=== PATIENT | male | born 1990 | race Caucasian/White ===

== ENCOUNTER 2025-01-25 09:07 | Inpatient (IN) | payer MEDICAID, SELFPAY ==
[2025-01-25 09:16] VITALS: BP 142/100; PULSE 103; RESP 18; TEMP 36.6; O2SAT 95
[2025-01-25 09:21] VITALS: BP 142/100; PULSE 103; RESP 18; TEMP 36.6; O2SAT 95
--- NOTE | 2025-01-25 09:23 | W.ED.GENAD ---
Discharge Plan Discharge Details Chief Complaint: Cellulitis Primary Care Provider: Coni Johnson ED Provider: Yamilka Washburn Home Meds and New Rx's Prescriptions: No Action divalproex [Depakote] 500 mg tablet,delayed release (DR/EC) 500 mg PO DAILY Rx Instructions: Take for 90 days clindamycin HCl 300 mg capsule 300 mg PO TID Patient Comments: Take for 10 days- started 01/25/25 methadone 10 mg/mL concentrate 100 mg PO DAILY albuterol 90 mcg/actuation aerosol 90 mcg inhalation QID PRN amitriptyline 50 mg tablet 50 mg PO QHS Arnuity Ellipta 50 mcg/actuation blister with device 1 inh inhalation DAILY HPI General Date/Time Provider Initiated Documentation: 01/25/25 09:22. HPI Narrative: Tone is a 35 year old male who presents to the emergency department today for evaluation of right elbow cellulitis. He reports that this started 4 to 5 days ago after he popped a fluid-filled blister on his right forearm. He says that it has grown swollen and reddened despite treatment with IM antibiotics and doxycycline. He says that Bactrim usually works for these types of infections for him, but he was not given that this time around. Denies associated fever/chills, general malaise, distal numbness. He does have decreased range of motion to right elbow due to significant swelling to forearm and distal elbow.. 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 Denies history of IVDU, immunocompromise, or other chronic conditions. He is on methadone daily. Physical exam remarkable for significant swelling (pitting edema), redness, and warmth to right forearm. Patient is able to bend elbow to 90 degrees, but is not able to fully extend elbow due to swelling and discomfort. Distal pulses intact, 5 out of 5 muscle strength to hand and arm. No pain with palpation of wrist or shoulder. Mild tachycardia noted, heart rate 103. Easy work of breathing, lung sounds clear bilaterally. D/dx includes but is not limited to: Abscess, cellulitis, lower suspicion for septic joint I independently interpreted the following tests: CBC, BMP, sed rate all reassuring. CRP slightly elevated at 2.48. CT upper extremity performed, soft tissue edema noted, no evidence of abscess or fluid collection. While in the emergency department, Tone received IV vancomycin. Presented case to hospitalist Dr. Jean Baptiste, patient to be admitted for treatment resistant cellulitis. Patient is agreeable with plan of care. Related Data Home Medications ?Medication ?Instructions ?Recorded ?Confirmed albuterol 90 mcg/actuation aerosol 90 mcg inhalation QID PRN 01/25/25 01/25/25 inhaler amitriptyline 50 mg tablet 50 mg PO QHS 01/25/25 01/25/25 clindamycin HCl 300 mg capsule 300 mg PO TID 01/25/25 01/25/25 divalproex 500 mg tablet,delayed 500 mg PO DAILY 01/25/25 01/25/25 release (Depakote) fluticasone furoate 50 1 inh inhalation DAILY 01/25/25 01/25/25 mcg/actuation blister powder for inhalation (Arnuity Ellipta) methadone 10 mg/mL oral concentrate 100 mg PO DAILY 01/25/25 01/25/25 Allergies Allergy/AdvReac Type Severity Reaction Status Date / Time No Known Allergies Allergy Unverified 01/25/25 09:25 General Stated Complaint: Cellulitis PAULETTE: 3 Review of Systems Narrative: See HPI Exam Const General: cooperative, healthy appearing, comfortable, no acute distress and well developed Nutritional Appearance: average body habitus and well nourished Orientation: alert and oriented x3 Resp Effort & Inspection: normal respiratory effort and able to speak in complete sentences Auscultation: clear to auscultation bilaterally Cardio Rate: tachycardic Rhythm: regular rhythm Skin Lesions: lesion noted (Lesion to right forearm with surrounding cellulitis, approx 15 cm x 8 cm) Neuro Motor: muscle tone normal throughout Sensory Exam: no sensory deficits noted Extrem Right upper extremity: elbow/forearm (Decreased extension due to swelling/discomfort) Details: swelling Location: of the proximal forearm Course Vital Signs Vital signs: Vital Signs Temperature 36.6 C 01/25/25 09:16 Pulse 103 H 01/25/25 09:16 Respiratory Rate 18 01/25/25 09:16 Blood Pressure 142/100 H 01/25/25 09:16 Pulse Oximetry 95 01/25/25 09:16 Temperature 36.6 C 01/25/25 09:21 Temperature Source Oral 01/25/25 09:21 Pulse 103 H 01/25/25 09:21 Respiratory Rate 18 01/25/25 09:21 Blood Pressure 142/100 H 01/25/25 09:21 Blood Pressure Position Sitting 01/25/25 09:21 Pulse Oximetry 95 01/25/25 09:21 Oxygen Delivery Method Room Air 01/25/25 09:21 Oxygen Flow Rate 0 01/25/25 09:21 Pain Level 7 01/25/25 09:21 Medical Decision Making Imaging Data Radiologic Study: Radiologist's impression: Accession No. : [id number] Creator : VICTOR MANUEL SAMPSON Dictator : VICTOR MANUEL SAMPSON Director Oracle : Social Services Aide : VICTOR MANUEL SAMPSON Approver2 : Report Date : 01/25/2025 12:50:09 Exam(s) CT UPPER EXTREMITY RT W EXAM: CT UPPER EXTREMITY RT W CLINICAL HISTORY: abscess to R forearm TECHNIQUE: Imaging Protocol: Axial computed tomography images with coronal and sagittal reformatted images were created and reviewed. CONTRAST MATERIAL: Intravenous: Omnipaque 350 Contrast volume:1 Ruelas contrast route:IV - COMPARISON: No exams were available for comparison FINDINGS: Bones: There is no evidence of fracture or dislocation. Bony alignment is satisfactory. No lytic or sclerotic lesions are identified. Soft Tissues: Diffuse soft tissue edema from slightly above the elbow through the distal forearm, greater posteriorly. No discrete abscess or fluid collection. Vasculature appears patent. IMPRESSION: Soft tissue edema posteriorly. No evidence of abscess. RADIATION DOSE DELIVERED: 377.18mGy.cm Total DLP DATA REPOSITORY: All CT scans at this facility are submitted to the National Radiology Data Registry (NRDR) Dose Index Registry (DIR) with the [employer] (ACR). RADIATION OPTIMIZATION: All CT scans at this facility use at least one of these dose optimization techniques: automated exposure control; mA and/or kV adjustment per patient size (includes targeted exams where dose is matched to clinical indication); or iterative reconstruction. Quality:SDOH Health Related Social Needs: No Data to Display [facility] Social History Smoking/Tobacco Use Status: Current every day Smoking risk assessment performed?: Yes Drug use: Daily Do you feel safe in your relationship?: Yes
--- NOTE | 2025-01-25 09:45 | DI.CT_ITS ---
Exam(s) CT UPPER EXTREMITY RT W EXAM: CT UPPER EXTREMITY RT W CLINICAL HISTORY: abscess to R forearm TECHNIQUE: Imaging Protocol: Axial computed tomography images with coronal and sagittal reformatted images were created and reviewed. CONTRAST MATERIAL: Intravenous: Omnipaque 350 Contrast volume:1 Ruelas contrast route:IV - COMPARISON: No exams were available for comparison FINDINGS: Bones: There is no evidence of fracture or dislocation. Bony alignment is satisfactory. No lytic or sclerotic lesions are identified. Soft Tissues: Diffuse soft tissue edema from slightly above the elbow through the distal forearm, gr eater posteriorly. No discrete abscess or fluid collection. Vasculature appears patent. IMPRESSION: Soft tissue edema posteriorly. No evidence of abscess. RADIATION DOSE DELIVERED: 377.18mGy.cm Total DLP DATA REPOSITORY: All CT scans at this facility are submitted to the National Radiology Data Registry (NRDR) Dose Index Registry (DIR) with the [employer] (ACR). RADIATION OPTIMIZATION: All CT scans at this facility use at least one of these dose optimization te chniques: automated exposure control; mA and/or kV adjustment per patient size (includes targeted exa ms where dose is matched to clinical indication); or iterative reconstruction.
[2025-01-25 10:42] LABS: Abs Immature Grans 0.05 10^3/uL (0.0-0.06); Absolute Basophil Count 0.02 10^3/uL (0.0-0.2); Absolute Eosinophil Count 0.24 10^3/uL (0.0-0.7); Absolute Lymphocyte Count 1.21 10^3/uL (1.2-3.4); Absolute Neutrophil Count 3.68 10^3/uL (1.2-6.7); Basophils % 0.4 %; Eosinophils % 4.2 %; HCT 39.8 % (40.0-50.0); HGB 13.6 g/dL (13.5-17.5); Immature Grans % 0.9 %; Lymphocytes % 21.2 %; MCHC 34.2 % (32.0-36.0); MCV 88 fL (80-95); MPV 8.9 fL (8.0-11.0); Monocytes % 8.8 %; Neutrophils % 64.5 %; Platelet Count 224 10^3/uL (130-400); RBC 4.54 10^6/uL (4.36-5.78); RDW 12.2 % (11.8-14.1); RDW-SD 39.2 fL
[2025-01-25 10:43] LABS: ESR 7 mm/hr (0-15)
[2025-01-25 10:54] LABS: C-Reactive Protein 2.48 mg/dL (<or=0.5)
[2025-01-25] MEDS: Normal Saline - Diluent 50 ML VIAL IJ (11:58)
[2025-01-25] MEDS: Omnipaque 350 MG/ML 100 ML BTL IJ (11:59)
[2025-01-25 12:24] LABS: Anion Gap 8.5 mmol/L (3-11); BUN 14 mg/dL (7-18); CO2 29.5 mmol/L (21.0-32.0); CREATININE 0.9 mg/dL (0.70-1.30); Calcium 8.9 mg/dL (8.5-10.1); Chloride 103 mmol/L (98-107); Estimated GFR 115.65 (mL/min/1.73m2); Glucose 91 mg/dL (74-106); Potassium 4.2 mmol/L (3.5-5.1); Sodium 141 mmol/L (136-145)
[2025-01-25 12:46] LABS: Lab Add On Test DONE
[2025-01-25] MEDS: VANCOMYCIN 2,000 MG in Normal Saline 500 ML 333.3333 MG IVPB (13:42)
[2025-01-25 16:48] VITALS: BP 129/78; PULSE 71; TEMP 36.3; O2SAT 94
[2025-01-25 20:32] VITALS: BP 134/75; PULSE 70; RESP 19; TEMP 36.8; O2SAT 98
--- NOTE | 2025-01-25 20:32 | W.PCEDHO ---
Registration Status: Primary Language: Preferred Language: ED Information & Data Chief Complaint Cellulitis 01/25/25 09:40 Triage Note Hx of these infections- 01/25/25 09:16 usually uses a different antibiotic but was started on doxy which does not typically work for him- infection present for 4-5 days, denies fevers Most Recent Vital Signs Temperature 36.3 C L 01/25/25 16:48 Temperature Source Oral 01/25/25 16:48 Pulse 71 01/25/25 16:48 Respiratory Rate 18 01/25/25 09:21 Blood Pressure 129/78 01/25/25 16:48 Blood Pressure Position Sitting 01/25/25 09:21 Pulse Oximetry 94 01/25/25 16:48 Oxygen Delivery Method Room Air 01/25/25 16:48 Oxygen Flow Rate 0 01/25/25 16:48 Pain Level 4 01/25/25 16:48 Allergies No Known Allergies Allergy (Unverified 01/25/25 09:25) Precautions Isolation Standard precaution 01/25/25 09:22 Active Medications Generic Name Dose Route Start Last Admin Trade Name Capo PRN Reason Stop Dose Admin Iohexol 100 ml 01/25/25 12:00 01/25/25 11:59 Omnipaque 350 Mg/Ml 100 Ml Btl IJ 02/24/25 23:59 100 ml DIRECTED CONCEPCIÓN Administration Sodium Chloride 50 ml 01/25/25 12:00 01/25/25 11:58 Normal Saline - Diluent 50 Ml Vial IJ 50 ml .FOR DI USE CONCEPCIÓN Administration IV IV Catheter Type [Left Saline Lock Antecubital] IV Catheter Gauge [Left 18 Antecubital] Diagnostics 01/25/25 01/25/25 Range/Units 12:20 10:33 WBC 5.70 (4.4-10.8) 10^3/uL RBC 4.54 (4.36-5.78) 10^6/uL Hgb 13.6 (13.5-17.5) g/dL Hct 39.8 L (40.0-50.0) % MCV 88 (80-95) fL MCH 30.0 (27.0-33.0) pg MCHC 34.2 (32.0-36.0) % RDW 12.2 (11.8-14.1) % Plt Count 224 (130-400) 10^3/uL MPV 8.9 (8.0-11.0) fL Immature Gran % 0.9 % Neutrophils % 64.5 % Lymphocytes % 21.2 % Monocytes % 8.8 % Eosinophils % 4.2 % Basophils % 0.4 % Nucleated RBC % 0.0 (0.0-0.3) % Absolute Neutrophils 3.68 (1.2-6.7) 10^3/uL Absolute Lymphocytes 1.21 (1.2-3.4) 10^3/uL Absolute Monocytes 0.50 (0.1-0.8) 10^3/uL Absolute Eosinophils 0.24 (0.0-0.7) 10^3/uL Absolute Basophils 0.02 (0.0-0.2) 10^3/uL ESR 7 (0-15) mm/hr Sodium 141 (136-145) mmol/L Potassium 4.2 (3.5-5.1) mmol/L Chloride 103 (98-107) mmol/L Carbon Dioxide 29.5 (21.0-32.0) mmol/L Anion Gap 8.5 (3-11) mmol/L BUN 14 (7-18) mg/dL Creatinine 0.9 (0.70-1.30) mg/dL Est GFR (CKD-EPI 2020) 115.65 (mL/min/1.73m2) Glucose 91 (74-106) mg/dL Calcium 8.9 (8.5-10.1) mg/dL C-Reactive Protein 2.48 H (<or=0.5) mg/dL Add-On Test Request DONE 01/25/25 11:08 Blood Culture - Pending Blood 01/25/25 10:33 Blood Culture - Pending Blood Intake and Output - 24 Hour Total 01/25/25 09:07 thru 01/25/25 16:43 Intake Total 510 Balance 510 Weight 104.326 kg Intake: IV 510 Falls Risk Assessment History of Falls No History 01/25/25 09:27 Contributing Factors No Factors 01/25/25 09:27 Ambulatory Aids Independent 01/25/25 09:27 Tubes/Lines None 01/25/25 09:27 Gait Evaluation No gait disturbance 01/25/25 09:27 Cognition No cognitive impairment 01/25/25 09:27 Fall Total Score 0 01/25/25 09:27 Level of Risk Standard/Low Risk 01/25/25 09:27 Problems Cellulitis (Acute) v v v v v v v v v Sending and/or Receiving Nurses: Please use comment section below to note any information pertinent to the patient hand-off not included above. Information / Comments: no questions. Report received from: Karen FERGUSON
[2025-01-25 20:42] VITALS: BP 148/90; PULSE 75; RESP 20; TEMP 36.7; O2SAT 98
--- NOTE | 2025-01-25 21:37 | HPE_ITS ---
Date of service: 01/25/25 Time of Service: 20:00 Assessment and Plan Assessment and plan (1) Cellulitis: Status: Acute Assessment and plan: * Right forearm cellulitis, likely due to MRSA, given the patient's history of frequent MRSA abscesses, failed initial treatment with doxycycline, and characteristic presentation (swelling, redness, warmth). * The patient denies systemic symptoms like fever, chills, or malaise, and imaging showed no evidence of abscess or fluid collection, which suggests a localized infection. * No evidence of septic arthritis or deep tissue infection (no joint involvement, CT negative for abscess). Plan: 1. Antibiotics: * Continue IV Vancomycin: * Initiate or continue IV vancomycin for MRSA coverage. * Dosage: 15 mg/kg IV every 12 hours (adjust as needed based on renal function). * Reassess daily for clinical improvement. If no improvement after 48-72 hours, consider broadening coverage or changing to an alternative antibiotic. * Assess for Oral Step-Down: * Once clinically stable, consider switching to oral Bactrim (for MRSA coverage) or Clindamycin (if vancomycin tolerance or resistance is a concern) for outpatient therapy. * Transition when the patient has improved, and fever or signs of systemic infection have resolved. 2. Pain Management: * NSAIDs (e.g., ibuprofen 400-600 mg every 6-8 hours) for pain relief, as tolerated. * Consider acetaminophen for mild pain and discomfort. 3. Wound Care: * Elevation: Encourage the patient to elevate the affected arm to reduce swelling. * Wound care instructions: Keep the area clean, dry, and covered with sterile dressing to avoid further contamination or trauma. 4. Monitoring: * Vital Signs: Monitor temperature, heart rate, and respiratory status. * Labs: Continue monitoring for any signs of worsening infection or systemic involvement (e.g., repeat CBC, CRP). * Monitor renal function with vancomycin therapy, as needed. 5. Consultation: * If there is no improvement within 48-72 hours of treatment, consider Infectious Disease consultation for possible antibiotic adjustment or other diagnostic evaluations. * If a deeper abscess develops or further surgical intervention is needed, consult Surgery for drainage. 6. Discharge Criteria: * If the patient improves, he may be discharged with a prescription for oral antibiotics (Bactrim or clindamycin) and follow-up care. * Follow-up: Schedule a follow-up appointment in 48-72 hours to reassess progress or sooner if any signs of worsening occur. * Provide contact instructions if symptoms worsen (increased redness, fever, worsening pain, or swelling). 7. Patient Education: * Discuss MRSA infection prevention, including proper wound care and hygiene. * Advise on recognizing warning signs of worsening infection (e.g., fever, increased redness, or drainage) and when to seek urgent care. * Reinforce the importance of completing the full course of antibiotics, even if symptoms resolve. History of Present Illness History of Present Illness Chief Complaint: Pain to right lower arm Narrative: Tone Wall is a 35-year-old male who presents to the emergency department with a complaint of right elbow cellulitis. He reports that the condition began 4-5 days ago after he popped a fluid-filled blister on his right forearm. Since then, the area has become progressively swollen, red, and increasingly painful, despite having received intramuscular antibiotics and doxycycline. He notes that Bactrim is typically effective for these types of infections for him, but it was not prescribed this time. He denies fever, chills, general malaise, or distal numbness. However, he reports decreased range of motion in the right elbow due to swelling in the forearm and distal elbow region. The patient has a history of frequent abscesses, including MRSA infections for which he has undergone MRSA eradication previously. He has experienced multiple abscesses throughout his body. He denies any history of intravenous drug use, immunocompromise, or other chronic conditions. He is currently on methadone daily. Physical Exam: * Right Forearm: Significant swelling with pitting edema, redness, and warmth. * Right Elbow: The patient is able to bend the elbow to 90 degrees but is unable to fully extend it due to swelling and discomfort. * Distal Extremity: Distal pulses are intact, and muscle strength is 5/5 in both the hand and arm. * Other Joints: No pain with palpation of the wrist or shoulder. * Vitals: Mild tachycardia (heart rate 103). The patient has easy work of breathing, and lung sounds are clear bilaterally. Diagnostic Workup: * Laboratory Results: * CBC, BMP, and sed rate: All reassuring, with no significant signs of systemic infection. * CRP: Slightly elevated at 2.48, which is consistent with inflammation. * Imaging: * CT of the upper extremity: Demonstrated soft tissue edema, but no evidence of abscess or fluid collection, which makes an abscess less likely. Differential Diagnosis: * Abscess: Less likely, as there is no evidence of a fluid collection or abscess seen on the CT scan. * Cellulitis: Most likely diagnosis, given the patient?s presentation of swelling, redness, and warmth, and the patient?s history of MRSA infections. * Septic Joint: Less likely, as the patient has no joint pain and the swelling is more localized to the soft tissue, with no other signs suggesting a septic joint. Management: * The patient was started on IV vancomycin in the emergency department, which is appropriate for suspected MRSA cellulitis, given his history and current presentation. * The patient is admitted to the medical floor for futher administration of IV antibiotics. * Full code [facility] All Active Problems (Updated 01/25/25 @ 15:59 by Yamilka Jenkins) Cellulitis (Acute) Social History Smoking/Tobacco Use Status: Current every day Smoking risk assessment performed?: Yes Drug use: Daily Housing: other Do you feel safe in your relationship?: Yes Meds Allergies and Home Medications Allergies Allergy/AdvReac Type Severity Reaction Status Date / Time No Known Allergies Allergy Unverified 01/25/25 09:25 Home Medications ?Medication ?Instructions ?Recorded ?Confirmed ?Type albuterol 90 mcg/actuation aerosol 90 mcg inhalation QID PRN 01/25/25 01/25/25 History inhaler amitriptyline 50 mg tablet 50 mg PO QHS 01/25/25 01/25/25 History clindamycin HCl 300 mg capsule 300 mg PO TID 01/25/25 01/25/25 History divalproex 500 mg tablet,delayed 500 mg PO DAILY 01/25/25 01/25/25 History release (Depakote) fluticasone furoate 50 1 inh inhalation DAILY 01/25/25 01/25/25 History mcg/actuation blister powder for inhalation (Arnuity Ellipta) methadone 10 mg/mL oral concentrate 100 mg PO DAILY 01/25/25 01/25/25 History Exam Const General: cooperative, healthy appearing, comfortable, no acute distress and well developed Nutritional Appearance: average body habitus and well nourished Orientation: alert and oriented x3 Resp Effort & Inspection: normal respiratory effort and able to speak in complete sentences Auscultation: clear to auscultation bilaterally Cardio Rate: tachycardic Rhythm: regular rhythm Skin Lesions: lesion noted (Lesion to right forearm with surrounding cellulitis, approx 15 cm x 8 cm) Neuro Motor: muscle tone normal throughout Sensory Exam: no sensory deficits noted Extrem Right upper extremity: elbow/forearm (Decreased extension due to swelling/discomfort) Details: swelling Location: of the proximal forearm Results Labs 01/25/25 10:33 01/25/25 10:33 Labs: Laboratory Results - last 24 hr 01/25/25 01/25/25 10:33 12:20 WBC 5.70 RBC 4.54 Hgb 13.6 Hct 39.8 L MCV 88 MCH 30.0 MCHC 34.2 RDW 12.2 Plt Count 224 MPV 8.9 Immature Gran % 0.9 Neutrophils % 64.5 Lymphocytes % 21.2 Monocytes % 8.8 Eosinophils % 4.2 Basophils % 0.4 Nucleated RBC % 0.0 Absolute Neutrophils 3.68 Absolute Lymphocytes 1.21 Absolute Monocytes 0.50 Absolute Eosinophils 0.24 Absolute Basophils 0.02 ESR 7 Sodium 141 Potassium 4.2 Chloride 103 Carbon Dioxide 29.5 Anion Gap 8.5 BUN 14 Creatinine 0.9 Est GFR (CKD-EPI 2020) 115.65 Glucose 91 Calcium 8.9 C-Reactive Protein 2.48 H Add-On Test Request DONE Last Vital Signs Temp 36.7 C 01/25/25 20:42 Pulse 75 01/25/25 20:42 Resp 20 01/25/25 20:42 BP 148/90 H 01/25/25 20:42 Pulse Ox 98 01/25/25 20:42 Time Spent Time spent with Patient: 40-54 minutes Time was spent: preparing to see the patient(eg.review tests), obtaining and/or reviewing separately otained hiistory, ordering medications,tests, procedures, referring, communicating with other health child caregiver private home, indepentently interpreting results, counseling the patient and care coordination
[2025-01-25] MEDS: Water,Injection,Sterile 10 ML VIAL (22:30)
[2025-01-25] MEDS: VANCOMYCIN 750 MG in Normal Saline 250 ML 166.667 MG IVPB (23:00)
[2025-01-25] MEDS: Divalproex 500 MG TABEC PO (23:05)
[2025-01-26 03:04] VITALS: BP 134/84; PULSE 85; RESP 16; TEMP 36.9; O2SAT 93
[2025-01-26] MEDS: VANCOMYCIN 1,500 MG in Normal Saline 250 ML 166.667 MG IVPB ×2 (06:27→17:36)
[2025-01-26 06:47] LABS: Abs Immature Grans 0.06 10^3/uL (0.0-0.06); Absolute Basophil Count 0.02 10^3/uL (0.0-0.2); Absolute Eosinophil Count 0.24 10^3/uL (0.0-0.7); Absolute Lymphocyte Count 1.42 10^3/uL (1.2-3.4); Absolute Monocyte Count 0.47 10^3/uL (0.1-0.8); Absolute Neutrophil Count 3.02 10^3/uL (1.2-6.7); Basophils % 0.4 %; Eosinophils % 4.6 %; HCT 37.7 % (40.0-50.0); HGB 12.9 g/dL (13.5-17.5); Immature Grans % 1.1 %; Lymphocytes % 27.2 %; MCH 29.9 pg (27.0-33.0); MCHC 34.2 % (32.0-36.0); MCV 87 fL (80-95); MPV 9.1 fL (8.0-11.0); Neutrophils % 57.7 %; Platelet Count 223 10^3/uL (130-400); RBC 4.32 10^6/uL (4.36-5.78); RDW 12.2 % (11.8-14.1); RDW-SD 38.8 fL; WBC 5.23 10^3/uL (4.4-10.8)
[2025-01-26 06:53] LABS: Anion Gap 3.7 mmol/L (3-11); BUN 12 mg/dL (7-18); CO2 31.3 mmol/L (21.0-32.0); CREATININE 0.9 mg/dL (0.70-1.30); Chloride 104 mmol/L (98-107); Estimated GFR 115.65 (mL/min/1.73m2); Glucose 98 mg/dL (74-106); Magnesium 2.1 mg/dL (1.8-2.4); Potassium 3.9 mmol/L (3.5-5.1); Sodium 139 mmol/L (136-145)
[2025-01-26 07:19] VITALS: BP 124/79; PULSE 75; RESP 16; TEMP 36.4; O2SAT 93
[2025-01-26 07:25] LABS: C-Reactive Protein 1.94 mg/dL (<or=0.5); Vancomycin, Random 9.8 ug/mL
[2025-01-26] MEDS: Methadone Liquid 10 MG/ML 100 MG PO (08:04)
--- NOTE | 2025-01-26 09:22 | INITIAL_ITS ---
Date of service: 01/26/25 Time of Service: 09:22 Care Management Initial Assmt Initial Assessment Reason for Hospitalization: Cellulites of the right forearm Functional Status/Living Situation Patient Presentation: Tone has Cellulites of his right Forearm. He was started on IV ABX, and cultures are pending. He is an inmate at [facility] and will be accompanied by a chief privacy officer during his admission. Plan is for Tone to discharge back to the correctional facility when able to transition to PO antibiotics. Tone has a HX of MRSA; discharge to a Medical Correctional Facility should be considered if adjunct faculty for medical terminology IV ABX are needed. CM will follow. Town of Residence: [facility] Resides with: Other ( [facility]) Employment Status: Other (Incarcerated) Instrumental Activities of Daily Living (ADLs): Independent Medications Medication Management: No Issues/Barriers identified Physical Functioning/Mobility Assistive Device: None Advance Directives Advance Directives: Do you have an Advance Directive: N 09/10/14 18:43 AD On File at [facility]: N 09/10/14 18:43 Date Asked 01/25/25 01/25/25 09:16 AD Date Reviewed COLST On File at [facility] COLST Date Scanned Code Status Resuscitation Status Full Code Insurance Coverage/Financial Issues Insurance: Medicaid of [facility] Care Team Visit Care Team Role Provider Type Kristel Perez APRN MD [facility] STAFF PHYSICIAN Coni Johnson Primary Care Provider NURSE PRACTITIONER Yamilka Jenkins Emergency Provider NURSE PRACTITIONER Piero Jean Baptiste, Admit Provider [facility] STAFF PHYSICIAN Attending Provider Discharge Anticipated Barriers to Discharge: None Identified Patient/Family Education Needs: Review discharge instructions, discuss Ask Me Three Transportation: Facility Transport (Secure transport will be provided by the [facility]) Plan: Tone will return to [facility] when medically ready. He will be driven by facility guards. CM will follow. Social Determinants of Health Screening Social Determinants of Health last assessed: 01/26/25 Will the Patient Participate in the Screening?: Yes Do you worry about having a steady place to live?: no Problems where you live: no known problems In the past 12 months, have you had to go without electric, gas, oil or water in your home?: no Have you or anyone in your house had to go without enough food to eat?: no Has lack of transportation kept you from medical appointments or from doing things needed for daily living?: no Has anyone in your life made you feel unsafe or unsupported?: no How hard is it for you to pay for the very basics like food, housing, medical care, and heating? Would you say it is:: Not hard at all Do you want help finding or keeping work or a job?: I do not need or want help If for any reason you need help with day-to-day activities such as bathing, preparing meals, shopping, managing finances, etc., do you get the help you need?: I don?t need any help How often do you feel lonely or isolated from those around you?: Never Do you speak a language other than [place] at home?: No Does the patient want assistance with any of the above?: No Social Determinants of Health Comments(SDOH Details): Patient is incarcerated in snf for past 9 month's [facility] All Active Problems (Updated 01/25/25 @ 15:59 by Yamilka Jenkins) Cellulitis (Acute) Social History Smoking/Tobacco Use Status: Current every day Smoking risk assessment performed?: Yes Drug use: Daily Housing: other Do you feel safe in your relationship?: Yes
--- NOTE | 2025-01-26 09:40 | PGE_ITS ---
Date of Service Date of service: 01/26/25 Time of Service: 09:40 Assessment and Plan Assessment and plan (1) Cellulitis: Status: Acute Assessment and plan: * Initially failed treatment with doxycycline as a history of MRSA most likely a factor in his right forearm cellulitisgiven the patient's history of frequent MRSA abscesses * CT negative for abscess and no evidence of septic arthritis or deep tissue infection Plan: 1. Antibiotics: * Continue IV Vancomycin: * Blood culture pending showing no growth at 24 hours, wound swab completed * Improving, looking forward to transition to IV then oral linezolid 2. Pain Management: * Continue NSAIDs (e.g., ibuprofen 400-600 mg every 6-8 hours) for pain relief, as tolerated. * Consider short course of scheduled acetaminophen for mild pain and discomfort. 3. Wound Care: * Continue elevation: Encourage the patient to elevate the affected arm to reduce swelling. * Maintain clean wound area covered with sterile dressing if draining to avoid further contamination or trauma. 4. Monitoring: * Vital Signs: Monitor temperature, heart rate, and respiratory status. * Labs: Continue monitoring for any signs of worsening infection or systemic involvement (e.g., repeat CBC, CRP). * Monitor renal function with vancomycin therapy, as needed. 5. Consultation: * Consider consulting ID if no improvement within 48 to 72 hours 6. Discharge Criteria: * Discharged on oral antibiotics with improvement * Follow-up:consider scheduling a follow-up appointment 48 to 72 hours - sooner if any signs of worsening occur. I 7. Patient Education: * Discuss MRSA infection prevention, including proper wound care and hygiene but MRSA is most annoyed prevalent in correctional settings * Reinforce the importance of completing the full course of antibiotics, even if symptoms resolve. * * * discussed your cold with Dr. Markel Gaffney Subjective Subjective Patient reports: feels better, tolerating liquids well, tolerating a regular diet and bowel movement; denies voiding w/o difficulty, diarrhea, nausea, vomiting, shortness of breath or fever Exam Narrative Exam Narrative: Alert and oriented x 3, nonfocal, clear lungs, regular heart, nonacute abdomen, right upper extremity with improved swelling and decreased area of erythema, Small scab formation with no drainage near elbow, no swelling tenderness Objective Last Vital Signs Temp 36.4 C L 01/26/25 07:19 Pulse 75 01/26/25 07:19 Resp 16 01/26/25 07:19 BP 124/79 01/26/25 07:19 Pulse Ox 93 01/26/25 07:19 Laboratory Results - last 24 hr 01/25/25 01/25/25 01/26/25 10:33 12:20 06:10 WBC 5.70 5.23 RBC 4.54 4.32 L Hgb 13.6 12.9 L Hct 39.8 L 37.7 L MCV 88 87 MCH 30.0 29.9 MCHC 34.2 34.2 RDW 12.2 12.2 Plt Count 224 223 MPV 8.9 9.1 Immature Gran % 0.9 1.1 Neutrophils % 64.5 57.7 Lymphocytes % 21.2 27.2 Monocytes % 8.8 9.0 Eosinophils % 4.2 4.6 Basophils % 0.4 0.4 Nucleated RBC % 0.0 0.0 Absolute Neutrophils 3.68 3.02 Absolute Lymphocytes 1.21 1.42 Absolute Monocytes 0.50 0.47 Absolute Eosinophils 0.24 0.24 Absolute Basophils 0.02 0.02 ESR 7 Sodium 141 139 Potassium 4.2 3.9 Chloride 103 104 Carbon Dioxide 29.5 31.3 Anion Gap 8.5 3.7 BUN 14 12 Creatinine 0.9 0.9 Est GFR (CKD-EPI 2020) 115.65 115.65 Glucose 91 98 Calcium 8.9 9.0 Magnesium 2.1 C-Reactive Protein 2.48 H 1.94 H Random Vancomycin 9.8 Add-On Test Request DONE Time Spent with Patient Time Spent with Patient: >50 minutes Time was spent: preparing to see the patient(eg.review tests), obtaining and/or reviewing separately otained hiistory, ordering medications,tests, procedures, referring, communicating with other health skin care consultant, indepentently interpreting results, counseling the patient and care coordination
[2025-01-26 11:42] VITALS: BP 127/81; PULSE 85; RESP 16; TEMP 36.6; O2SAT 93
[2025-01-26 15:31] VITALS: BP 126/74; PULSE 71; RESP 15; TEMP 36.9; O2SAT 91
[2025-01-26] MEDS: Divalproex 500 MG TABEC PO (19:41)
[2025-01-26] MEDS: Normal Saline Flush 10 ML SYR IVP ×2 (19:42→23:01)
[2025-01-26 19:49] VITALS: BP 110/79; PULSE 76; RESP 18; TEMP 36.5; O2SAT 96
[2025-01-26] MEDS: Amitriptyline 50 MG TAB PO (21:28)
[2025-01-26] MEDS: LINEZOLID 600 MG/300 ML BAG 300 MG IVPB (22:59)
[2025-01-26 23:14] VITALS: BP 117/76; PULSE 73; RESP 16; TEMP 36.5; O2SAT 96
[2025-01-27 03:35] VITALS: BP 106/79; PULSE 75; RESP 18; TEMP 36.5; O2SAT 94
[2025-01-27 06:09] VITALS: BP 115/84; PULSE 71; RESP 16; TEMP 36.6; O2SAT 95
[2025-01-27 07:41] LABS: Abs Immature Grans 0.07 10^3/uL (0.0-0.06); Absolute Basophil Count 0.03 10^3/uL (0.0-0.2); Absolute Eosinophil Count 0.28 10^3/uL (0.0-0.7); Absolute Monocyte Count 0.37 10^3/uL (0.1-0.8); Absolute Neutrophil Count 2.02 10^3/uL (1.2-6.7); Basophils % 0.7 %; Eosinophils % 6.6 %; HCT 37.9 % (40.0-50.0); HGB 13.2 g/dL (13.5-17.5); Immature Grans % 1.6 %; Lymphocytes % 35.1 %; MCH 30.5 pg (27.0-33.0); MCHC 34.8 % (32.0-36.0); MCV 88 fL (80-95); MPV 9.2 fL (8.0-11.0); Monocytes % 8.7 %; Neutrophils % 47.3 %; Platelet Count 220 10^3/uL (130-400); RBC 4.33 10^6/uL (4.36-5.78); RDW 11.9 % (11.8-14.1); RDW-SD 38.3 fL; WBC 4.27 10^3/uL (4.4-10.8)
[2025-01-27 07:57] LABS: Anion Gap 8.9 mmol/L (3-11); BUN 8 mg/dL (7-18); C-Reactive Protein 1.18 mg/dL (<or=0.5); CO2 29.1 mmol/L (21.0-32.0); CREATININE 0.9 mg/dL (0.70-1.30); Chloride 104 mmol/L (98-107); Estimated GFR 115.65 (mL/min/1.73m2); Glucose 126 mg/dL (74-106); Potassium 3.8 mmol/L (3.5-5.1); Sodium 142 mmol/L (136-145)
[2025-01-27 08:31] LABS: ESR 4 mm/hr (0-15)
[2025-01-27] MEDS: Methadone Liquid 10 MG/ML 100 MG PO (08:35)
[2025-01-27] MEDS: Normal Saline Flush 10 ML SYR IVP (08:36)
[2025-01-27] MEDS: LINEZOLID 600 MG/300 ML BAG 300 MG IVPB (10:02)
--- NOTE | 2025-01-27 10:53 | W.PM.DS.N ---
Date of service: 01/27/25 Time of Service: 10:53 DS: Diagnosis Discharge Diagnosis (1) Cellulitis: Status: Acute Discharge Plan Disposition [facility] Disposition: [facility] Condition: Improving Discharge Details Reason For Visit: Cellulitis of the right forearm, History of MRSA Admit Date/Time: 01/25/25 17:34 Admit Provider: Piero Jean Baptiste Attending Provider: Piero Jean Baptiste Primary Care Provider: Coni Johnson Hospital Course Hospital Course: This 35-year-old male who lives at a correctional facility with Hx of skin MRSA infections, daily methadone use presented to the emergency department with a complaint of right elbow cellulitis starting 4-5 days prior to presentation after he popped a fluid-filled blister on his right forearm. Since then, the area has become progressively swollen, red, and increasingly painful, despite having received intramuscular antibiotics and doxycycline. He mentioned that Bactrim is typically effective for these types of infections for him.He had undergone MRSA eradication previously. He denied fever, chills, general malaise, or distal numbness. However, he reports decreased range of motion in the right elbow due to swelling in the forearm and distal elbow region. Denied history of IVD use. CT showed Diffuse soft tissue edema from slightly above the elbow through the distal forearm, greater posteriorly. No discrete abscess or fluid collection. Vasculature appears patent . CBC and chemistry were unremarkable, CRP was 1.94 with normal ESR. The patient was admitted to the hospitalist service for IV vancomycin with pending blood cultures. Superficial wound/ skin culture grew MRSA, blood cultures were negative. Cellulitis improved, vital signs remained stable, no chillls, fever or night sweats reported. The patient will be discharge on Bactrim DS BID to complete a 7 day-course treatment. Attempt to transition to oral linezolid aborted due to the interactions with home medicine regimen. The patient will have to follow-up with PCP within 7 days of discharge. Discussed with Dr. Jean Baptiste Home Meds and New Rx's Prescriptions: New sulfamethoxazole-trimethoprim 800-160 mg Tablet 1 tab PO Q12H Qty: 13 0RF acetaminophen 500 mg capsule 1,000 mg PO Q6H PRNQty: 30 0RF ibuprofen 600 mg tablet 600 mg PO Q8H PRNQty: 15 0RF Continued divalproex [Depakote] 500 mg tablet,delayed release (DR/EC) 500 mg PO DAILY Rx Instructions: Take for 90 days methadone 10 mg/mL concentrate 100 mg PO DAILY albuterol 90 mcg/actuation aerosol 90 mcg inhalation QID PRN amitriptyline 50 mg tablet 50 mg PO QHS Arnuity Ellipta 50 mcg/actuation blister with device 1 inh inhalation DAILY Discontinued clindamycin HCl 300 mg capsule 300 mg PO TID Patient Comments: Take for 10 days- started 01/25/25 Discharge Instructions Referrals: Coni Johnson [Primary Care Provider] - (F/u with PCP or outpatient medical care provider within 7 days of discharge) Activity:: Activity as Tolerated Equipment/Supplies:: No Equipment Needed Diet:: As Tolerated Discharge Orders Discharge Orders: Discharge Order (Routine); Ordered 01/27/25 Ordered By: Kristel Perez DS: Summary Time Spent with Patient providing and/or coordinating discharge services: Greater than 30 minutes Status at Discharge Functional status at discharge: independent ambulation Overall status at discharge: patient is progressing back to baseline Mental Status: mental status grossly normal Speech and Movement: speech and movement normal Mood: congruent mood Affect: normal affect Quality:SDOH Health Related Social Needs: No Data to Display Exam Narrative Exam Narrative: Alert and oriented x 3, nonfocal, clear lungs, regular heart, nonacute abdomen, right upper extremity with improved swelling and decreased area of erythema, Small scab formation with no drainage near elbow, improved swelling, no tenderness, no ROM limit to right elbow Psych Mental Status: mental status grossly normal Speech and Movement: speech and movement normal Mood: congruent mood Affect: normal affect DS: Data Vitals/I&O Vitals and I&O: Vital Signs Temperature 36.6 C 01/27/25 06:09 Temperature Source Temporal Artery Scan 01/27/25 06:09 Pulse 71 01/27/25 06:09 Pulse Rhythm Regular 01/25/25 20:42 Respiratory Rate 16 01/27/25 06:09 Respiratory Effort Normal 01/25/25 20:42 Respiratory Depth Normal 01/25/25 20:42 Respiratory Pattern Normal 01/25/25 20:42 Blood Pressure 115/84 01/27/25 06:09 Blood Pressure Position Sitting 01/25/25 09:21 Pulse Oximetry 95 01/27/25 06:09 Oxygen Delivery Method Room Air 01/27/25 06:09 Oxygen Flow Rate 0 01/27/25 06:09 Pain Level 3 01/27/25 08:35 Intake & Output 01/26/25 01/26/25 01/27/25 11:59 23:59 11:59 Intake Total 860 / 1420 560 / 1420 Output Total 550 / 550 Balance 860 / 870 Intake: IV 500 / 1060 560 / 1060 Oral 360 / 360 Output: Urine 550 / 550 Other: Urine Color Yellow Yellow Urine Appearance Clear Clear Urine Odor Normal Normal Comment Pt voiding independently in toilet per pt voided x1 Data Completed and Pending Labs on day of discharge: Labs from last 24 hours 01/27/25 06:55 WBC 4.27 L RBC 4.33 L Hgb 13.2 L Hct 37.9 L MCV 88 MCH 30.5 MCHC 34.8 RDW 11.9 Plt Count 220 MPV 9.2 Immature Gran % 1.6 Neutrophils % 47.3 Lymphocytes % 35.1 Monocytes % 8.7 Eosinophils % 6.6 Basophils % 0.7 Nucleated RBC % 0.0 Absolute Neutrophils 2.02 Absolute Lymphocytes 1.50 Absolute Monocytes 0.37 Absolute Eosinophils 0.28 Absolute Basophils 0.03 ESR 4 Sodium 142 Potassium 3.8 Chloride 104 Carbon Dioxide 29.1 Anion Gap 8.9 BUN 8 Creatinine 0.9 Est GFR (CKD-EPI 2020) 115.65 Glucose 126 H Calcium 9.0 C-Reactive Protein 1.18 H 01/26/25 11:08 Arm - Right Skin Culture - Pending Preliminary micro results at discharge 01/25/25 11:08 Blood Culture - Preliminary Blood NO GROWTH 24 HOURS 01/25/25 10:33 Blood Culture - Preliminary Blood NO GROWTH 24 HOURS 01/26/25 11:08 Skin Culture - Pending Arm - Right PFSH All Active Problems (Updated 01/25/25 @ 15:59 by Yamilka Jenkins) Cellulitis (Acute) Social History Smoking/Tobacco Use Status: Current every day Smoking risk assessment performed?: Yes Drug use: Daily Housing: other Do you feel safe in your relationship?: Yes Time Spent with Patient Time Spent with Patient: 70-84 minutes4 Time was spent: preparing to see the patient(eg.review tests), obtaining and/or reviewing separately otained hiistory, ordering medications,tests, procedures, referring, communicating with other health skin care therapist, indepentently interpreting results, counseling the patient and care coordination
[2025-01-27 11:24] VITALS: BP 123/83; PULSE 78; RESP 16; TEMP 36.5; O2SAT 95
--- NOTE | 2025-01-27 11:40 | CMDISCH_ITS ---
Date of service: 01/27/25 Time of Service: 11:40 LACE Index Scoring Tool Questions: Length of Stay (in days): 2 Was the patient admitted via the E.D.?: Yes E.D. Visits: 1 Answers: Total Score: 6 Risk of Readmission: Low Risk Care Management Discharge Plan Reason for Hospitalization: Cellulites Discharge Plan: Discharge back to [facility] on PO ABX. Transportation is being provided by facility. Tone will follow up with facility/community providers and his discharge plan of care as instructed. No new services are ordered prior to discharge. Patient/Family Education Needs: Review discharge instructions, limitations, medications and plan to follow up after discharge. Discuss ask me three. [facility] Health Related Social Needs: No Data to Display
== END 2025-01-27 14:42 | DRG 603 ==
LOC: ER 15:59 → EDHOLD 19:52 → MS 20:35
PROVIDERS: Nurse Practitioner Family; Admitting Provider Hospitalist; Emergency Provider Nurse Practitioner Family; PCP Nurse Practitioner Adult Health; Responsible Provider Nurse Practitioner Acute Care; Visit Provider Hospitalist
DX: L03.113 Cellulitis of right upper limb (principal); F11.20 Opioid dependence, uncomplicated; B95.62 Methicillin resistant Staphylococcus aureus infection as the cause of diseases classified elsewhere; Z86.14 Personal history of Methicillin resistant Staphylococcus aureus infection; R00.0 Tachycardia, unspecified; Z79.899 Other long term (current) drug therapy; F17.210 Nicotine dependence, cigarettes, uncomplicated
CPT/HCPCS: 00123; 36415; 80048; 85652; 87040; 87077; 96365; 96366; 99285; J1650; 73201; 80202; 83735; 85025; 86140; 87070; 87186; 99222; 99233; 99239; J2020; J3370; J3490